=== PATIENT | female | born 1965 ===

== ENCOUNTER 2019-03-17 22:28 | Emergency (ER) | payer SELFPAY ==
[2019-03-17] MEDS ORDERED: HALOPERIDOL LACT 5 MG/ML INJ IM ONE (22:36)
[2019-03-17] MEDS ORDERED: LORazepam 2 MG/ML INJ IM ONE (22:36)
--- NOTE | 2019-03-17 22:40 | EDPHY ---
H & P Time Seen by Provider: 03/17/19 22:37 HPI/ROS: HPI CHIEF COMPLAINT: Medical clearance for senior living, left forehead hematoma HISTORY OF PRESENT ILLNESS: This patient is a 53-year-old female she arrives to the emergency room in 4 point restraints with police escort, in fact there are 5 police officers with her. Please make contact with her at a [employer]. It is reported by police and EMS she was trying to exchange a chicken sandwich. When [employer] refused to do this she started yelling causing disturbance in the restaurant. The police were called. She got verbally and physically aggressive with the police requiring them to 4 point restrain her, she fell and hit her head, she has a left forehead hematoma. She arrives to the emergency room screaming, and telling everyone to "fuck off" I am unable to obtain any history or review of systems from her. Her only visible trauma on exam is a left forehead hematoma. His in a spit mask, she spit on EMS and police. She is in 4 point restraints. She will not calm down is screaming and cursing at staff and police. Past Medical History: Unknown Past Surgical History:Unknown Social History:Unknown Family History:Unknown ROS REVIEW OF SYSTEMS: Limited due to patient's mental state. Exam Constitutional angry, agitated, in 4 point restraints, screaming and yelling, triage nursing summary reviewed, vital signs reviewed, awake/alert. Noted be hypertensive in tachycardic upon arrival however patient angry screaming in 4 point restraints Eyes normal conjunctivae and sclera, EOMI, PERRLA. HENT left forehead hematoma, no laceration, moist mucus membranes, no epistaxis, neck supple/ no meningismus, no raccoon eyes. Respiratory clear to auscultation bilaterally, normal breath sounds, no respiratory distress, no wheezing. Cardiovascular tachycardia, regular rhythm, no murmur, no edema, distal pulses normal. Gastrointestinal soft, non-tender, no rebound, no guarding, normal bowel sounds, no distension, no pulsatile mass. Genitourinary no CVA tenderness. Musculoskeletal no midline vertebral tenderness, full range of motion, no calf swelling, no tenderness of extremities, no meningismus, good pulses, neurovascularly intact. Skin pink, warm, & dry, no rash, skin atraumatic. Neurologic angry, screaming, yelling, cursing at staff, moving all extremities in 4 point restraints. Differential Diagnosis: Includes but is not limited to in a particular order drug intoxication, polysubstance abuse, closed-head injury, intracranial bleed, scalp hematoma, subdural, traumatic subarachnoid, anger issues, underlying mental illness Medical Decision Making: Plan for this patient she is screaming and yelling at staff requiring 4 point restraints she will not cooperate. She will need a CT scan of her head to make sure she does not have an intracranial bleed however she is too angry yelling and not following commands she required Haldol 10 mg IM , Ativan 2 mg IM. Re-evaluation: 2336: Patient was given 10 mg IM Haldol 2 mg IM Ativan she is more Calm now. Plan for CT imaging. CT scan head without contrast and CT cervical spine without contrast no acute intracranial findings no cervical spine fracture faxed to me by direct Radiology 12:43 a.m. 0300AM: Patient sleeping. nad. 0400AM: Patient re-evaluated she is awake, alert and oriented, calm and cooperative and answers my questions appropriately. She denies having any significant medical history. She is much more common when she arrived here. She states she got into a physical altercation with the police. She received 10 mg IM Haldol and 2 mg IM Ativan upon arrival here she has been resting comfortably for over 5 hr mainly sleeping. However nail she is up ambulatory with a stable gait answers questions appropriately, has no focal medical complaint. Patient CT scan head without contrast and CT cervical spine without contrast were reviewed for trauma and a left forehead hematoma. This is negative for acute traumatic injury. Given that the patient is, cooperative in acting appropriately she can be safely discharged from the emergency room she has no focal medical complaints at this time. She states she got very upset at the police. Source: Patient, Police, EMS Exam Limitations: Clinical condition, Intoxication Constitutional: Initial Vital Signs Temperature (C) 36.4 C 03/17/19 22:28 Heart Rate 128 H 03/17/19 22:28 Respiratory Rate 24 H 03/17/19 22:28 Blood Pressure 168/106 H 03/17/19 22:28 O2 Sat (%) 100 03/17/19 22:28 O2 Delivery Mode Room Air Allergies/Adverse Reactions: Unable to Assess Allergy (Unverified 03/17/19 22:48) Home Medications: Medication Instructions Recorded Unobtainable 03/17/19 Medical Decision Making - Data Points Laboratory Results: 03/18/19 00:00 Hep Bs Antibody NEGATIVE (NEGATIVE) Hepatitis C Antibody NEGATIVE (NEGATIVE) HIV 1&2 Antibody NEGATIVE (NEGATIVE) Medications Given: Discontinued Medications Haloperidol Lactate (Haldol Injection) 10 mg IM EDNOW ONE Stop: 03/17/19 22:37 Last Admin: 03/17/19 22:55 Dose: 10 mg Sodium Chloride (Ns) 1,000 mls @ 0 mls/hr IV EDNOW ONE; Wide Open PRN Reason: Protocol Stop: 03/17/19 22:44 Last Admin: 03/17/19 22:55 Dose: Not Given Lorazepam (Ativan Injection) 2 mg IM EDNOW ONE Stop: 03/17/19 22:37 Last Admin: 03/17/19 22:55 Dose: 2 mg Departure - Departure Disposition: Home, Routine, Self-Care Clinical Impression: Hematoma Head injury Qualifiers: Encounter type: initial encounter Qualified Code(s): S09.90XA - Unspecified injury of head, initial encounter Concussion Qualifiers: Encounter type: initial encounter Loss of consciousness presence/duration: without LOC Qualified Code(s): S06.0X0A - Concussion without loss of consciousness, initial encounter Condition: Good Instructions: Concussion (ED), Head Injury (ED) Additional Instructions: 1. Rest and stay well-hydrated 2. Return to the emergency room if he develops worsening symptoms. Referrals: Patient,NotPresent [Primary Care Provider] - As per Instructions
[2019-03-17] MEDS ORDERED: NS 1,000 ML IV ONE (22:43)
[2019-03-18 02:49] LABS: HEPATITIS C ANTIBODY TOTAL NEGATIVE (NEGATIVE); HIV TYPE 1 AND 2 NEGATIVE (NEGATIVE)
[2019-03-18 04:08] VITALS: BP 106/60
== END 2019-03-18 04:04 | disposition home or self-care (01) ==
LOC: EEVIPCON 22:28
DX: S06.0X0A Concussion without loss of consciousness, initial encounter (principal); E86.9 Volume depletion, unspecified; W01.0XXA Fall on same level from slipping, tripping and stumbling without subsequent striking against object, initial encounter; Y92.511 Restaurant or cafe as the place of occurrence of the external cause
CPT/HCPCS: G0472; J1630; J2060